=== PATIENT | male | born 1985 | race Caucasian/White ===

== ENCOUNTER 2016-10-24 08:40 | Emergency (ER) | payer MEDICAID ==
[~2016-10-24] VITALS: Ht 160 cm; Wt 80.0 kg
[2016-10-24 08:45] VITALS: Ht 160 cm; Wt 80.0 kg
[2016-10-24 09:22] LABS: ADD UMIC NO; URINE BILIRUBIN (Dip) NEGATIVE (NEGATIVE); URINE BLOOD (Dip) NEGATIVE (NEGATIVE); URINE COLOR LT. YELLOW (YELLOW); URINE GLUCOSE (Dip) NEGATIVE (NEGATIVE); URINE KETONES (Dip) NEGATIVE (NEGATIVE); URINE LEUKOCYTE ESTERASE (Dip) NEGATIVE (NEGATIVE); URINE NITRITE (Dip) NEGATIVE (NEGATIVE); URINE TOTAL PROTEIN (Dip) NEGATIVE (NEGATIVE); URINE UROBILINOGEN (Dip) 0.2 E.U./dL (0.1-1.0)
--- NOTE | 2016-10-24 09:39 | RADRPT ---
PROCEDURE: US Scrotum. CLINICAL INDICATION: Pain TECHNIQUE: Multiple sonographic images of the scrotal region were obtained utilizing a linear arra y transducer with grayscale and color-flow and a Doppler imaging. The images were reviewed on a high -resolution PACS workstation. COMPARISON: No prior studies are available for comparison. FINDINGS: The right testicle is well visualized and has a normal echotexture. No focal areas of abnormal echog enicity are visualized. The right testicle measures measures 4.4 x 2.2 x 2.9 cm. There is normal col or-flow. The right epididymis is visualized and unremarkable in appearance. There is normal color-fl ow. The left testicle is well visualized and has a normal echotexture. No focal areas abnormal echogenic ity are visualized. The left testicle measures measures 4.4 x 2.2 x 3.0 cm. There is normal color-fl ow. The left epididymis is visualized and is unremarkable in appearance. There is normal color-flow. There are small bilateral hydroceles. RPTAT: AA IMPRESSION: Small bilateral hydroceles. Otherwise unremarkable. .Zach Jameson MD, Date Time Electronically viewed and signed by .Zach Jameson MD, on 10/24/2016 09:39 .S/
--- NOTE | 2016-10-24 09:43 | ERD ---
ER Documentation Chief Complaint Date/Time DATE: 10/24/16 TIME: 09:42 Chief Complaint body aches, chills x 1 week HPI This is a 31-year-old male who comes in with complaints of testicular swelling bilaterally for the past 3-4 days. No fevers no chills no dysuria. No nausea no vomiting. No other current complaints. ROS All systems reviewed and are negative except as per history of present illness. PMhx/Soc History of Surgery: No Anesthesia Reaction: No Hx Neurological Disorder: No Hx Respiratory Disorders: No Hx Cardiac Disorders: No Hx Psychiatric Problems: No Hx Miscellaneous Medical Probl: No Hx Alcohol Use: No Hx Substance Use: No Hx Tobacco Use: No Physical Exam Vitals Vital Signs Date Time Temp Pulse Resp B/P Pulse Ox O2 Delivery O2 Flow Rate FiO2 10/24/16 08:45 97.7 87 18 130/90 99 Physical Exam Const: [] Head: Atraumatic Eyes: Normal Conjunctiva ENT: Normal External Ears, Nose and Mouth. Neck: Full range of motion..~ No meningismus. Resp: Clear to auscultation bilaterally Cardio: Regular rate and rhythm, no murmurs Abd: Soft, non tender, non distended. Normal bowel sounds Skin: No petechiae or rashes Back: No midline or flank tenderness Ext: No cyanosis, or edema Neur: Awake and alert Psych: Normal Mood and Affect Results 24 hrs Laboratory Tests Test 10/24/16 09:00 Urine Color LT. YELLOW Urine Clarity CLEAR Urine pH 6.0 Urine Specific [place] <=1.005 Urine Ketones NEGATIVE Urine Nitrite NEGATIVE Urine Bilirubin NEGATIVE Urine Urobilinogen 0.2 E.U./dL Urine Leukocyte Esterase NEGATIVE Urine Hemoglobin NEGATIVE Urine Glucose NEGATIVE% Urine Total Protein NEGATIVE Procedures/MDM Testicular ultrasound shows trace hydrocele bilaterally Urinalysis is negative Medical decision-makin-year-old male as well as be hydrocele causing his testicular swelling. At this point is clinically stable for outpatient management. Patient told to use sitz bath. Discharged home with pain medication. Follow-up with primary care physician. Return immediately for worsening symptoms. Given outpatient urology consult. Departure Diagnosis: Primary Impression: Hydrocele in adult Additional Impression: Testicular pain Condition: Stable ANABELLE SIGALA October 24, 2016 09:43
[2016-10-24] MEDS ORDERED: IBUP800T25 PO (09:44)
[2016-10-24] MEDS ORDERED: CIPR500T4 PO (09:44)
== END 2016-10-24 09:55 | disposition home or self-care (01) ==
LOC: E/R 08:40
DX: N43.3 Hydrocele, unspecified (principal); N50.811 Right testicular pain; N50.812 Left testicular pain
CPT/HCPCS: 76870; 81003; 87086; Z7502